=== PATIENT | female | born 1960 | race Caucasian/White ===

== ENCOUNTER 2018-06-23 09:18 | Emergency (ER) | payer BC ==
[2018-06-23] MEDS ORDERED: HYDROmorphone 0.5 MG/0.5 ML SYRINGE IVPUSH ONE (09:52)
[2018-06-23] MEDS ORDERED: Sodium Chloride 0.9% 10 ML Syringe FLUSH PRN (09:52)
[2018-06-23] MEDS ORDERED: Sodium Chloride 0.9% 500 ML IV ONE (09:53)
--- NOTE | 2018-06-23 11:51 | EDM.PDOC ---
ED HPI GENERAL MEDICAL PROBLEM - General Chief Complaint: Chest Pain Stated Complaint: CHEST PAIN/SOB Time Seen by Provider: 06/23/18 09:36 Source of Information: Reports: Patient, RN Notes Reviewed - History of Present Illness INITIAL COMMENTS - FREE TEXT/NARRATIVE: 57-year-old lady comes in with right anterior chest discomfort that she has had for about the past week or so. She did have a biopsydone about one week ago at a cancer center in [place]. She's been having the right pleuritic-type chest discomfort since that time. No fever or chills. She has been coughing but mostly nonproductive. She does have history of breast cancer diagnosed about 3 years ago. She did have surgical, radiation and chemotherapy type treatment. 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 Right Chest Pain Score (Numeric/FACES): 3 - Related Data Allergies Allergy/AdvReac Type Severity Reaction Status Date / Time No Known Allergies Allergy Verified 06/23/18 09:34 Home Meds: Home Meds Acetaminophen/HYDROcodone [[place] 325-5 MG] 1 tab PO Q8HR #14 tablet 06/23/18 [Rx ] B&C/FA/Zinc/Copper Oxide/Vit E [Stress B-Complex Tablet] 1 tab PO DAILY [History] Carboxymethylcellulos/Glycerin [Refresh Optive] 1 drop EYEBOTH DAILY 06/23/18 [ History] Cholecalciferol (Vitamin D3) [Vitamin D] 1 tab PO DAILY 06/23/18 [History] Fexofenadine [Britta] 180 mg PO DAILY 06/23/18 [History] [place] 1 tab PO BID 06/23/18 [History] Meclizine [Antivert] 25 mg PO TID PRN 06/23/18 [History] Naproxen Sodium [Aleve] 1 tab PO DAILY PRN 06/23/18 [History] Pravastatin [Pravachol] 20 mg PO DAILY 06/23/18 [History] levoFLOXacin [Levaquin] 500 mg PO DAILY #7 tab 06/23/18 [Rx] metFORMIN [Glucophage XR] 500 mg PO ASDIRECTED PRN 06/23/18 [History] traMADol [Ultram] 50 mg PO Q6HR PRN 06/23/18 [History] Past Medical History Other HEENT History: wears glasses Cardiovascular History: Reports: High Cholesterol Respiratory History: Reports: Other (See Below) Other Respiratory History: Lung CA Endocrine/Metabolic History: Reports: Diabetes, Type II, Other (See Below) Other Endocrine/Metabolic History: hypokalemia Oncologic (Cancer) History: Reports: Breast, Lung, Metastatic, Other (See Below) Other Oncologic History: hip - Past Surgical History Respiratory Surgical History: Reports: Lung Biopsies Female Surgical History: Reports: Breast Biopsy, Mastectomy Oncologic Surgical History: Reports: Biopsy of Breast, Other (See Below) Other Oncologic Surgeries/Procedures: lung biospsy Social & Family History - Tobacco Use Smoking Status *Q: Never Smoker - Caffeine Use Caffeine Use: Reports: None - Recreational Drug Use Recreational Drug Use: No ED ROS GENERAL - Review of Systems Review Of Systems: See Below Constitutional: Reports: Chills. Denies: Fever HEENT: Denies: Sinus Problem, Throat Pain Respiratory: Reports: Pleuritic Chest Pain, Cough. Denies: Shortness of Breath , Wheezing, Sputum, Hemoptysis Cardiovascular: Denies: Chest Pain GI/Abdominal: Denies: Abdominal Pain, Nausea, Vomiting Musculoskeletal: Denies: Shoulder Pain, Arm Pain, Back Pain Skin: Reports: No Symptoms Neurological: Denies: Numbness, Tingling ED EXAM, GENERAL - Physical Exam Exam: See Below General Appearance: Alert, Mild Distress Eye Exam: Bilateral Eye: PERRL Throat/Mouth: Normal Inspection Neck: Supple, Full Range of Motion Respiratory/Chest: No Respiratory Distress, Lungs Clear, Normal Breath Sounds Cardiovascular: Regular Rate, Rhythm GI/Abdominal: Soft, Non-Tender Back Exam: No: CVA Tenderness (L), CVA Tenderness (R) Extremities: Normal Inspection, Normal Range of Motion. No: Pedal Edema, Leg Pain, Increased Warmth, Redness Neurological: Alert, Oriented, No Motor/Sensory Deficits Skin Exam: Warm, Dry, Normal Color Course - Vital Signs Last Recorded V/S: Last Vital Signs Temp 97.9 F 06/23/18 09:26 Pulse 77 06/23/18 13:41 Resp 13 06/23/18 13:41 BP 133/77 06/23/18 13:41 Pulse Ox 98 06/23/18 13:41 - Orders/Labs/Meds Orders: Active Orders 24 hr Category Date Time Status EKG Documentation Completion [RC] ASDIRECTED Care 06/23/18 09:28 Active Implanted Port Access [RC] DAILY Care 06/23/18 10:29 Active Peripheral IV Care [RC] . DIRECTED Care 06/23/18 09:53 Active Chest 1V Frontal [CR] Stat Exams 06/23/18 10:00 Taken Peripheral IV Insertion Adult [OM.PC] Stat Oth 06/23/18 09:52 Ordered EKG 12 Lead [EK] Stat Ther 06/23/18 09:28 Ordered Labs: Laboratory Tests 06/23/18 06/23/18 06/23/18 Range/Units 10:10 10:10 10:10 WBC 4.54 (3.98-10.04) K/mm3 RBC 3.25 L (3.98-5.22) M/mm3 Hgb 11.5 (11.2-15.7) gm/L Hct 33.3 L (34.1-44.9) % MCV 102.5 H (79.4-94.8) fl MCH 35.4 H (25.6-32.2) pg MCHC 34.5 (32.2-35.5) g/dl RDW Std Deviation 46.9 H (36.4-46.3) fL Plt Count 222 (182-369) K/mm3 MPV 9.3 L (9.4-12.3) fl Neutrophils % (Manual) 66 H (40-60) % Band Neutrophils % 0 (0-10) % Lymphocytes % (Manual) 29 (20-40) % Atypical Lymphs % 0 % Monocytes % (Manual) 3 (2-10) % Eosinophils % (Manual) 2 (0.7-5.8) % Basophils % (Manual) 0 L (0.1-1.2) Platelet Estimate Adequate Anisocytosis 1+ slight Macrocytosis 1+ slight RBC Morph Comment Not Reportable Sodium 136 (136-145) mEq/L Potassium 3.9 (3.5-5.1) mEq/L Chloride 108 H (98-107) mEq/L Carbon Dioxide 23 (21-32) mEq/L Anion Gap 8.9 (5-15) BUN 15 (7-18) mg/dL Creatinine 1.0 (0.55-1.02) mg/dL Est Cr Clr Drug Dosing 55.18 mL/min Estimated GFR (MDRD) 57 (>60) mL/min BUN/Creatinine Ratio 15.0 (14-18) Glucose 135 H (74-106) mg/dL Calcium 9.1 (8.5-10.1) mg/dL Total Bilirubin 0.7 (0.2-1.0) mg/dL AST 20 (15-37) U/L ALT 34 (14-59) U/L Alkaline Phosphatase 82 (46-116) U/L C-Reactive Protein 1.6 H* (<1.0) mg/dL Total Protein 6.9 (6.4-8.2) g/dl Albumin 3.5 (3.4-5.0) g/dl Globulin 3.4 gm/dL Albumin/Globulin Ratio 1.0 (1-2) Meds: Medications Discontinued Medications Generic Name Dose Route Start Last Admin Trade Name Freq PRN Reason Stop Dose Admin Heparin Sodium (Porcine) 500 units 06/23/18 13:29 06/23/18 13:39 Heparin Lock Flush 100 Units/Ml FLUSH 06/23/18 13:30 500 units ASDIRECTED ONE Administration Hydromorphone HCl 0.5 mg 06/23/18 09:52 06/23/18 10:19 Dilaudid IVPUSH 06/23/18 09:53 0.5 mg ONETIME ONE Administration Sodium Chloride 500 mls @ 999 mls/hr 06/23/18 09:53 06/23/18 10:18 Normal Saline IV 06/23/18 10:23 999 mls/hr .BOLUS ONE Administration Sodium Chloride 10 ml 06/23/18 09:52 06/23/18 10:20 Saline Flush FLUSH 10 ml ASDIRECTED PRN Administration Keep Vein Open - Re-Assessments/Exams Free Text/Narrative Re-Assessment/Exam: 06/23/18 15:14 Chest x-ray does show some infiltrate and atelectasis right base, was good in that white blood count was not elevated, no left shift, C-reactive protein about 1.3. O2 sats been running 99-100%. We did give Dilaudid 0.5 mg IV to help her discomfort and she did obtained good relief from that, discharge instructions as documented. Departure - Departure Time of Disposition: 13:17 Disposition: Home, Self-Care 01 Condition: Fair Clinical Impression: Atypical chest pain Prescriptions: Acetaminophen/HYDROcodone [[place] 325-5 MG] 1 tab PO Q8HR #14 tablet levoFLOXacin [Levaquin] 500 mg PO DAILY #7 tab Instructions: Nonspecific Chest Pain, [id number] Referrals: Senait Perez PA-C [Primary Care Provider] - Forms: ED Department Discharge Additional Instructions: Rest, increase activity as tolerated, you may alternate Tylenol and Aleve throughout the day as needed for discomfort, hydrocodone pain pill especially at bedtime if needed to better help you relax and sleep at night, follow-up clinic in about 10 days as planned, return to ED as needed if symptoms worsening in any way. - My Orders Last 24 Hours: My Active Orders 06/23/18 09:28 EKG Documentation Completion [RC] ASDIRECTED EKG 12 Lead [EK] Stat 06/23/18 09:52 Peripheral IV Insertion Adult [OM.PC] Stat 06/23/18 09:53 Peripheral IV Care [RC] . DIRECTED 06/23/18 10:00 Chest 1V Frontal [CR] Stat 06/23/18 10:29 Implanted Port Access [RC] DAILY - Assessment/Plan Last 24 Hours: My Active Orders 06/23/18 09:28 EKG Documentation Completion [RC] ASDIRECTED EKG 12 Lead [EK] Stat 06/23/18 09:52 Peripheral IV Insertion Adult [OM.PC] Stat 06/23/18 09:53 Peripheral IV Care [RC] . DIRECTED 06/23/18 10:00 Chest 1V Frontal [CR] Stat 06/23/18 10:29 Implanted Port Access [RC] DAILY
[2018-06-23 13:50] VITALS: BP 133/77
--- NOTE | 2018-06-24 07:40 | CR ---
Addendum: Side discrepancy is seen between the body and impression. Increased density is seen within the right mid and lower lung and not left side as noted in the body of the report. The impression is correct. --- Addendum1 above dictated on [06/24/2018 10:32] by [Yani Handley Hilton J.] --- --- Addendum1 above signed on [06/24/2018 10:33] by [Yani Handley Hilton J.] --- --- Original report below dictated on [06/24/2018 06:05] by [Yani Handley, Guillermo Hoffmann] --- --- Original report below signed on [06/24/2018 10:22] by [Yani Handley, Guillermo Hoffmann] --- Chest: Portable view of the chest was obtained. Comparison: Prior chest x-ray of 10/18/14. Infusion port is seen entering from the left side. Surgical clips are noted within the right chest wall and axillary region. Increased density is noted within the left mid and lower lung. Uncertain if this is acute or represents scarring from previous radiation. Left lung is clear. Bony structures are grossly intact. Impression: 1. Increased density within the right mid and lower lung. Uncertain if this is acute and due to pneumonia versus chronic change from radiation therapy which has occurred in the interim from prior exam. 2. Infusion port is seen. Nothing acute is otherwise identified. Diagnostic code #3 --- Addendum1 signed ---
== END 2018-06-23 13:41 | disposition home or self-care (01) ==
LOC: JD.ED 09:18
DX: R07.89 Other chest pain (principal); E11.9 Type 2 diabetes mellitus without complications; C50.919 Malignant neoplasm of unspecified site of unspecified female breast; C78.00 Secondary malignant neoplasm of unspecified lung; C79.89 Secondary malignant neoplasm of other specified sites; Z79.84 Long term (current) use of oral hypoglycemic drugs; Z79.899 Other long term (current) drug therapy
CPT/HCPCS: 36415; 71045; 80053; 85007; 85027; 86140; 93005; 96361; 96374; 99285; J1170; J1642; J7040; J7050; 93010; 99284-25

== ENCOUNTER 2018-09-30 15:25 | Emergency (ER) | payer BC ==
--- NOTE | 2018-09-30 15:53 | EDM.PDOC ---
ED HPI GENERAL MEDICAL PROBLEM - General Chief Complaint: Gastrointestinal Problem Stated Complaint: VOMITING/DIZZY Time Seen by Provider: 09/30/18 15:53 Source of Information: Reports: Patient History Limitations: Reports: No Limitations - History of Present Illness INITIAL COMMENTS - FREE TEXT/NARRATIVE: 57-year-old female presents to the ED due to intractable nausea vomiting and diarrhea. She has diffuse pain particularly her abdomen chest and left hip. Patient was diagnosed with right-sided breast cancer in 2015. She did undergo a radical right-sided mastectomy with 9 lymph nodes removed and she states for 5 of them were positive for metastatic cancer i.e. stage C disease.. This was treated with chemotherapy for 6 months. Was found to have metastasized to her left hip in October 2016 and to her right lung. She subsequently received 25 treatments of radiation to her right lung. She has tried numerous medications to help with the bone pain and left hip but apparently is a slow growing lesion in the medicines worked well with a lot of side effects. She was recently hospitalized because of pneumonia in the right lung. End of July she had a chronic right-sided pleural effusion from metastatic disease involving the pleura. She has chronic pain in her right chest wall with breathing and coughing. Her withdraws partially 500 mils of beatris/straw-colored fluid true the colostomy tube every second day. He did this yesterday. She has not had any fever or chills. She believes that since she restarted her chemotherapy tablet she's had increased nausea vomiting and diarrhea associated headache. She so weak she can hardly stand up or walk at all. She's scheduled to go back to [facility] tomorrow for cancer clinic checkup. She has a chronic cough mostly nonproductive but painful in her right chest. She has a Port-A-Cath left upper anterior chest she estimates that she's lost between 12 and 15 pounds of weight since the end of July. Of note she has stopped all of her current medications 3 days ago is nothing will stay down. She denies any hematemesis or hematochezia. Stools are mostly loose and watery usually twice to 3 times daily associate with some abdominal cramping pain pain left hip for the most part is constant in the posterior lateral side of the hip. It radiates down towards the knee. It of course is worse with standing or walking Onset: Other (Cancer was diagnosed in October 2015 right breast.) Onset Date: 09/22/18 (Has been very sick since discharge from hospital just before [place]. She had pneumonia right lung.) Duration: Chronic (Chronic illness secondary to metastatic carcinoma of the right breast to her lung on the right side into her left hip. She also had biopsies of her liver done the end of July and she has not found out the results.), Getting Worse, Other (Intractable nausea and vomiting.) Location: Reports: Other (Has a known chronic recurrent pleural effusion on the right side drains 500 mils every second day. Thoracostomy tube that is in the right lung.) Quality: Reports: Other (Pleuritic right-sided chest pain. Deep aching pain left hip) Severity: Moderate (Pain is 8 out of 10.) Improves with: Reports: Rest (Leg pain is better at rest. Chest pain is worsened by lying down) Worsens with: Reports: Other, Movement Context: Reports: Other (Metastatic breast cancer to bone and lung). Denies: Activity, Exercise, Lifting, Sick Contact, Trauma Associated Symptoms: Reports: Chest Pain (Right side with every breath or cough. ), Cough ( Pleuritic), cough w sputum, Headaches, Loss of Appetite, Malaise, Nausea/Vomiting, Shortness of Breath, Other (Intractable nausea and vomiting loose watery stools usually 2-3 times daily ). 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: Other (see below) (K keep any of her medicines down lately and stopped her chemotherapy tablet 3 days ago) Head Pain Score (Numeric/FACES): 10 Middle Chest Pain Score (Numeric/FACES): 10 Bilateral Abdominal Pain Score (Numeric/FACES): 10 - Related Data Allergies Allergy/AdvReac Type Severity Reaction Status Date / Time No Known Allergies Allergy Verified 09/30/18 15:41 Home Meds: Home Meds Carboxymethylcellulos/Glycerin [Refresh Optive] 1 drop EYEBOTH BID PRN 06/23/18 [History] Cholecalciferol (Vitamin D3) [Vitamin D] 5,000 unit PO DAILY 06/23/18 [History] Fexofenadine [Britta] 180 mg PO DAILY 06/23/18 [History] Meclizine [Antivert] 25 mg PO DAILY PRN 06/23/18 [History] Pravastatin [Pravachol] 20 mg PO DAILY 06/23/18 [History] metFORMIN [Glucophage XR] 500 mg PO DAILY PRN 06/23/18 [History] Dexamethasone 5 ml PO QID 07/22/18 [History] Baclofen 10 mg PO BID PRN 09/02/18 [History] Docusate Sodium [Colace] 100 mg PO DAILY PRN 09/02/18 [History] Hydrocodone/Acetaminophen [Hydrocodon-Acetaminophn 10-325] 10 - 325 tab PO Q4H PRN 09/02/18 [History] Capecitabine 500 mg PO ASDIRECTED 09/07/18 [History] Lactobacillus Rhamnosus GG [Culturelle] 1 cap PO DAILY 09/07/18 [History] Vitamin B Complex/Minerals [Sm Stress Formula+Zinc Tablet] 1 tab PO DAILY [History] Past Medical History HEENT History: Reports: Hard of Hearing (Mnire disease), Impaired Vision Other HEENT History: wears glasses Cardiovascular History: Reports: High Cholesterol Respiratory History: Reports: Other (See Below) (Right malignant pleural effusion) Other Respiratory History: Lung CA, PleurX drain to right chest Gastrointestinal History: Reports: None Genitourinary History: Reports: None 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: Neurological History: Reports: Other (See Below) Other Neuro History: meniere's syndrome Endocrine/Metabolic History: Reports: Diabetes, Type II Other Endocrine/Metabolic History: hypokalemia Hematologic History: Reports: Blood Transfusion(s) (associated with CTx) Other Hematologic History: low WBC during chemo Immunologic History: Reports: Immunosuppression Oncologic (Cancer) History: Reports: Breast (Right, Stage IV, s/p CTx) Other Oncologic History: hip - Infectious Disease History Infectious Disease History: Reports: Chicken Pox, Shingles - Past Surgical History HEENT Surgical History: Reports: Other (See Below) (Left Port-A-Cath) Respiratory Surgical History: Reports: Lung Biopsies (right), Other (See Below) (Right PleurX indwelling pleural catheter 08/29/2018. Has had liver biopsies done the end of August 02 and doesn't know the results.) Female Surgical History: Reports: Other (See Below) (Right radical mastectomy with removal of 9 lymph nodes for 5 or which were positive for cancer at the time of diagnosis in 2016) Oncologic Surgical History: Reports: Biopsy of Breast (right), Mastectomy (right , 2015) Social & Family History - Family History Family Medical History: Noncontributory - Caffeine Use Caffeine Use: Reports: None - Living Situation & Occupation Living situation: Reports: , with Spouse Occupation: Disabled ED ROS GENERAL - Review of Systems Review Of Systems: See Below Constitutional: Reports: Malaise, Weakness, Fatigue, Decreased Appetite, Weight Loss (Estimates 15 pound weight loss since end july). Denies: Fever, Chills HEENT: Reports: Glasses Respiratory: Reports: Shortness of Breath, Pleuritic Chest Pain (Right sided pleuritic chest pain with every breath and ), Cough (and cough.), Sputum ( on a cough ). Denies: Wheezing, Hemoptysis ( facial white sputum production ) Cardiovascular: Reports: Chest Pain, Dyspnea on Exertion, Lightheadedness. Denies: Claudication (Right-sided chest pain aggravated by coughing. Has a chronic right-sided pleural effusion from metastatic breast carcinoma involving the pleura.), Edema, Orthopnea, Palpitations Endocrine: Reports: Fatigue GI/Abdominal: Reports: Diarrhea (Intractable the last 3 days with dehydration. Diarrhea loose watery stool yellowish for the most part in color.), Nausea, Vomiting : Reports: No Symptoms, Other (Not putting out as much urine is normal) Musculoskeletal: Reports: Leg Pain (Has pain posterior lateral left hip with known metastatic cancer to the pelvis and hip bone. It radiates down the leg to the knee.) Skin: Reports: Bruising Neurological: Reports: No Symptoms (Oozes very easily.) Psychiatric: Reports: Depression Hematologic/Lymphatic: Reports: Anemia (From chemotherapy.) ED EXAM, GI/ABD - Physical Exam Exam: See Below Exam Limited By: No Limitations (Looks ill.) General Appearance: Thin, Other (Looks ill stafford Prescott collar. Resting tachycardia of 1 12/m. BP 115/50 but it went down to 95/58 once she was stabilized. Pulse ox 100% on room air.) Eyes: Bilateral: Normal Appearance (No jaundice.) Throat/Mouth: Other Head: Atraumatic (Tongue is very dry and coated.), Normocephalic Neck: Normal Inspection, Supple, Non-Tender, Full Range of Motion, Other (No supraclavicular or infraclavicular adenopathy identified). No: Lymphadenopathy (L), Lymphadenopathy (R) Respiratory/Chest: Respiratory Distress (Tachypnea get rest), Rales (Throughout the right lung field), Rhonchi, Other (Left lung is clear. She has a Silastic thoracostomy tube right posterior lateral thorax that drains recurrent pleural effusion from every second day usually about 500 mils. Port-A-Cath left upper anterior chest. There is air entry to the base of the right lung although there are numerous adventitial sounds both rhonchi and rales throughout the right lower lobe.) Cardiovascular: Normal Peripheral Pulses, No Edema, No Gallop (Resting tachycardia at 1 12/m), No Murmur, No Rub, Tachycardia GI/Abdominal Exam: Normal Bowel Sounds, Soft, Non-Tender, No Organomegaly, No Abnormal Bruit, No Mass, Pelvis Stable, Other (No surgical scars) Back Exam: Other (Very slight kyphosis thoracic spine) Extremities: Normal Inspection, Normal Range of Motion, Non-Tender, Other ( Tenderness with external rotation of the left hip. Pain with lifting the leg off the gurney on her own volition in the posterior lateral left hip) Neurological: Alert, Oriented, CN II-XII Intact, Normal Cognition EKG INTERPRETATION EKG Date: 09/30/18 Time: 16:52 Rhythm: Other (Sinus tachycardia) Rate (Beats/Min): 106 Rutledge: Normal P-Wave: Present (With borderline first-degree AV block) QRS: Other (Initial poor R-wave progression borderline criteria for left ventricular hypertrophy. Voltage in the limb leads) ST-T: Other (T-wave flattening in 3 and aVF) QT: Normal EKG Interpretation Comments: abnormal ECG Course - Vital Signs Last Recorded V/S: Last Vital Signs Temp 36.7 C 09/30/18 17:02 Pulse 94 09/30/18 17:02 Resp 16 09/30/18 17:02 BP 104/74 09/30/18 17:02 Pulse Ox 100 09/30/18 17:02 - Orders/Labs/Meds Orders: Active Orders 24 hr Category Date Time Status EKG Documentation Completion [RC] STAT Care 09/30/18 16:01 Active Chest 1V Frontal [CR] Stat Exams 09/30/18 16:00 Taken KETONES,BLOOD [CHEM] Stat Lab 09/30/18 16:25 Received Dextrose 5%-Lactated Ringers 1,000 ml Med 09/30/18 16:00 Active IV ASDIRECTED Medication Orders Dextrose/Lactated Ringer's (Dextrose 5%-Lactated Ringers) 1,000 mls @ 999 mls/ hr IV ASDIRECTED QUINTEN Last Admin: 09/30/18 16:29 Dose: 999 mls/hr Labs: Laboratory Tests 09/30/18 09/30/18 09/30/18 Range/Units 16:25 16:25 16:25 WBC 6.62 (3.98-10.04) K/mm3 RBC 3.51 L (3.98-5.22) M/mm3 Hgb 11.1 L (11.2-15.7) gm/L Hct 32.8 L (34.1-44.9) % MCV 93.4 (79.4-94.8) fl MCH 31.6 (25.6-32.2) pg MCHC 33.8 (32.2-35.5) g/dl RDW Std Deviation 68.4 H (36.4-46.3) fL Plt Count 234 (182-369) K/mm3 MPV 9.8 (9.4-12.3) fl Neutrophils % (Manual) 87 H (40-60) % Band Neutrophils % 0 (0-10) % Lymphocytes % (Manual) 10 L (20-40) % Atypical Lymphs % 0 % Monocytes % (Manual) 3 (2-10) % Eosinophils % (Manual) 0 L (0.7-5.8) % Basophils % (Manual) 0 L (0.1-1.2) Platelet Estimate Adequate RBC Morph Comment Normal ESR 60 H (0-20) mm/hr Sodium 140 (136-145) mEq/L Potassium 4.2 (3.5-5.1) mEq/L Chloride 101 (98-107) mEq/L Carbon Dioxide 24 (21-32) mEq/L Anion Gap 19.2 H (5-15) BUN 23 H (7-18) mg/dL Creatinine 1.0 (0.55-1.02) mg/dL Est Cr Clr Drug Dosing 55.18 mL/min Estimated GFR (MDRD) 57 (>60) mL/min BUN/Creatinine Ratio 23.0 H (14-18) Glucose 138 H (74-106) mg/dL Calcium 9.0 (8.5-10.1) mg/dL Magnesium 2.1 (1.8-2.4) mg/dl Total Bilirubin 1.4 H (0.2-1.0) mg/dL AST 25 (15-37) U/L ALT 30 (14-59) U/L Alkaline Phosphatase 160 H (46-116) U/L Lactate Dehydrogenase 352 H (81-234) U/L C-Reactive Protein 2.2 H* (<1.0) mg/dL NT-Pro-B Natriuret Pep (0-125) pg/mL Total Protein 6.3 L (6.4-8.2) g/dl Albumin 3.1 L (3.4-5.0) g/dl Globulin 3.2 gm/dL Albumin/Globulin Ratio 1.0 (1-2) 09/30/18 Range/Units 16:25 WBC (3.98-10.04) K/mm3 RBC (3.98-5.22) M/mm3 Hgb (11.2-15.7) gm/L Hct (34.1-44.9) % MCV (79.4-94.8) fl MCH (25.6-32.2) pg MCHC (32.2-35.5) g/dl RDW Std Deviation (36.4-46.3) fL Plt Count (182-369) K/mm3 MPV (9.4-12.3) fl Neutrophils % (Manual) (40-60) % Band Neutrophils % (0-10) % Lymphocytes % (Manual) (20-40) % Atypical Lymphs % % Monocytes % (Manual) (2-10) % Eosinophils % (Manual) (0.7-5.8) % Basophils % (Manual) (0.1-1.2) Platelet Estimate RBC Morph Comment ESR (0-20) mm/hr Sodium (136-145) mEq/L Potassium (3.5-5.1) mEq/L Chloride (98-107) mEq/L Carbon Dioxide (21-32) mEq/L Anion Gap (5-15) BUN (7-18) mg/dL Creatinine (0.55-1.02) mg/dL Est Cr Clr Drug Dosing mL/min Estimated GFR (MDRD) (>60) mL/min BUN/Creatinine Ratio (14-18) Glucose (74-106) mg/dL Calcium (8.5-10.1) mg/dL Magnesium (1.8-2.4) mg/dl Total Bilirubin (0.2-1.0) mg/dL AST (15-37) U/L ALT (14-59) U/L Alkaline Phosphatase (46-116) U/L Lactate Dehydrogenase (81-234) U/L C-Reactive Protein (<1.0) mg/dL NT-Pro-B Natriuret Pep 802 H (0-125) pg/mL Total Protein (6.4-8.2) g/dl Albumin (3.4-5.0) g/dl Globulin gm/dL Albumin/Globulin Ratio (1-2) Meds: Medications Generic Name Dose Route Start Last Admin Trade Name Freq PRN Reason Stop Dose Admin Dextrose/Lactated Ringer's 1,000 mls @ 999 mls/hr 09/30/18 16:00 09/30/18 16: 29 Dextrose 5%-Lactated Ringers IV 999 mls/hr ASDIRECTED QUINTEN Administration Discontinued Medications Generic Name Dose Route Start Last Admin Trade Name Freq PRN Reason Stop Dose Admin Hydromorphone HCl 0.5 mg 09/30/18 16:00 09/30/18 16:27 Dilaudid IVPUSH 09/30/18 16:01 0.5 mg ONETIME ONE Administration Lactated Ringer's 1,000 mls @ 999 mls/hr 09/30/18 17:26 09/30/18 17:25 Ringers, Lactated IV 09/30/18 18:26 999 mls/hr .BOLUS ONE Administration Metoclopramide HCl 7.5 mg 09/30/18 15:59 09/30/18 16:25 Reglan IVPUSH 09/30/18 16:00 7.5 mg ONETIME ONE Administration - Radiology Interpretation Free Text/Narrative:: 57-year-old female presents to the ED with intractable nausea and vomiting and diarrhea likely secondary to chemotherapy therapy tablet. She stopped these 3 days ago but still has been able to keep anything down. She clinically is volume depleted and orthostatic. On primary right breast cancer with metastatic disease to the right pleura and left hip. It's unclear whether it spread to her liver. She also has associated loose watery diarrhea usually 2-3 times daily. She estimates she's lost 15 pounds of weight over the last month. At present she is extremely weak and can barely walk without aid. She has a chronic right- sided pleural effusion which is drained by her every second day of beatris -colored fluid usually about 500 mils. Benign abdominal examination. Plan D5 LR via her Port-A-Cath. Routine labs including BMP and serum magnesium to be checked as well. One view chest x-ray. - Re-Assessments/Exams Free Text/Narrative Re-Assessment/Exam: 09/30/18 17:00 chest x-ray reveals these small right-sided pleural effusion and some blunting of the left costophrenic angle as well indicating a left- sided effusion as well. Cardiac silhouette is upper limits of normal. Is haziness in the right upper lobe of the lung as well cannot rule out an infective process versus fluid. Patient is afebrile at present however. 09/30/18 17:16 Labs reveal a normal white count at 6.62. 87% neutrophils no bands reported. Hemoglobin is slightly low 11.1 with hematocrit of 32.8. Platelet count is 234,000. Sedimentation rate was 60. Sodium was 140 with potassium of 4.2. Chloride is 101 with a bicarbonate of 24. And a gap is elevated at 19.2. B1 is 23 with a creatinine of 1.0. Estimated GFR is 57. Glucose is 138. Calcium is 9.0 with a magnesium of 2.1. Total bilirubin is minimally elevated at 1.4. AST is 25. ALT is 30. Alk phosphatase is 160. LDH is elevated at 352. C-reactive protein mildly elevated at 2.2. BNP is 802. Total protein is 6.3 with an albumin fraction of 3.1. 09/30/18 17:27 prescott is improved in terms of much less nausea and vomiting in the Dilaudid 0.5 mg did help alleviate a good deal of her pain. It did however did produce some degree of hypoxia which is chronic for her at any rate and she required oxygen supplementation for short period of time. She sats only 91-92% on room air due to the right-sided pleural effusion and small left-sided pleural effusion. Due to the anion gap being 19.1 probably due to ketosis I did order serum ketone levels. She will require a second liter of IV fluids and this will be Ringer's lactate at open. Discussed with her whether she wanted us to remove any more fluid from her right lower lung since she has a thoracostomy drainage tube in place but at this time she declined. She states it usually makes her cough and have quite a bit more pain when it is drained completely. The plan is for her to be discharged to home after completion of second liter of IV fluid. 09/30/18 18:30 second liter of Ringer's lactate has been infused. She's feeling much improved. BP is now 108/73 with a heart rate of 100. To 97% on room air. She/he feeling a bit hungry. To be discharged home in the care of her . Departure - Departure Time of Disposition: 18:33 Disposition: Home, Self-Care 01 Condition: Fair Clinical Impression: Dehydration, Metabolic acidosis with increased anion gap and accumulation of organic acids, Pleural effusion, right, Metastatic breast cancer Adverse effects of medication Qualifiers: Encounter type: initial encounter Qualified Code(s): T50.905A - Adverse effect of unspecified drugs, medicaments and biological substances, initial encounter Intractable nausea and vomiting Qualifiers: Vomiting type: unspecified Qualified Code(s): R11.2 - Nausea with vomiting, unspecified - Discharge Information *PRESCRIPTION DRUG MONITORING PROGRAM REVIEWED*: Not Applicable *COPY OF PRESCRIPTION DRUG MONITORING REPORT IN PATIENT MILAGROS: Not Applicable Referrals: Senait Perez PA-C [Primary Care Provider] - Forms: ED Department Discharge Additional Instructions: Evaluation the emergency room today in regards to intractable nausea and vomiting with some associated diarrhea. Occurred likely is adverse effect to chemotherapy regimen. Intractable nausea and vomiting is low to dehydration, metabolic acidosis which means when you're not able to eat food breakdown or fats for energy. Breakdown of fats create an acid buildup in her bloodstream and continues to cause a stab nausea and vomiting. This was the case on investigation today of your lab tests chest x-ray reveals a small right-sided pleural effusion probably 200-250 mils. There is also very small left-sided pleural effusion. Electrolytes were all within normal limits. He required 2 L of IV fluids to restore her volume depletion and correct your metabolic acidosis. Just continuing Zofran 4 mg under tongue every 4-6 hours to relieve nausea. Trying to get some form of electrolytes anterior system such as Gatorade Powerade or dilute juices of any kind is important. Purchasing bodybuilding proteins that tastes good and next with small amount of vomiting no would be a good posterior system to maintain your serum protein levels. I see no reason why you cannot travel to [facility] tomorrow as planned. - My Orders Last 24 Hours: My Active Orders 09/30/18 16:00 Chest 1V Frontal [CR] Stat Dextrose 5%-Lactated Ringers 1,000 ml IV ASDIRECTED 09/30/18 16:01 EKG Documentation Completion [RC] STAT 09/30/18 16:25 KETONES,BLOOD [CHEM] Stat - Assessment/Plan Last 24 Hours: My Active Orders 09/30/18 16:00 Chest 1V Frontal [CR] Stat Dextrose 5%-Lactated Ringers 1,000 ml IV ASDIRECTED 09/30/18 16:01 EKG Documentation Completion [RC] STAT 09/30/18 16:25 KETONES,BLOOD [CHEM] Stat
[2018-09-30] MEDS ORDERED: Metoclopramide 10 MG/2 ML SDV IVPUSH ONE (15:59)
[2018-09-30] MEDS ORDERED: Dextrose 5%-Lactated Ringers 1,000 ML IV SCH (16:00)
[2018-09-30] MEDS ORDERED: HYDROmorphone 1 MG/ML Syringe IVPUSH ONE (16:00)
[2018-09-30] MEDS ORDERED: Lactated Ringers 1,000 ML IV ONE (17:26)
[2018-09-30 19:10] VITALS: BP 96/76
--- NOTE | 2018-10-01 07:31 | CR ---
Chest: Portable view of the chest was obtained. Comparison: Previous chest x-ray of 09/07/18. Bilateral pleural effusions are seen. Pleural effusion on the right is stable from previous exam with pleural effusion left side having slightly increased from previous study. Right-sided chest tube is seen which appears kinked within the right lung apex. This is an interval change from previous exam. Left-sided infusion catheter is seen. No acute parenchymal change is seen. Heart is slightly prominent but is accentuated from portable technique. Bony structures are grossly intact. Previous right mastectomy is seen with surgical clips also seen within the right axillary region. Small sclerotic lesion is noted within the proximal left humerus which is stable from prior exam presumably due to small sclerotic osteoblastic lesion. Impression: 1. Bilateral pleural effusions which is stable on the right side and increased from prior exam on the left side. 2. Right sided chest tube which appears kinked within the right lung apex. 3. Other stable findings as noted above. Diagnostic code #3
== END 2018-09-30 18:55 | disposition home or self-care (01) ==
LOC: JD.ED 15:25
DX: R11.2 Nausea with vomiting, unspecified (principal); T45.1X5A Adverse effect of antineoplastic and immunosuppressive drugs, initial encounter; E87.2 Acidosis; E86.0 Dehydration; J90 Pleural effusion, not elsewhere classified; C50.919 Malignant neoplasm of unspecified site of unspecified female breast
CPT/HCPCS: 36415; 71045; 80053; 82009; 83615; 83735; 83880; 85007; 85027; 85652; 86140; 93005; 96361; 96374; 96375; 99284; J1170; J1642; J2765; J7042; J7120; 93010; 99285